=== PATIENT | female | born 1955 | race Caucasian/White ===

== ENCOUNTER 2016-11-15 13:00 | Day surgery (SDC) | payer MEDICARE ==
[2016-11-15] MEDS ORDERED: PROPOFOL 10 MG/ML VIAL IV ONE (14:00)
[2016-11-15] MEDS ORDERED: LIDOCAINE 2% MDV (20MG/ML) 20ML VIAL IV ONE (14:00)
[2016-11-15] MEDS ORDERED: MIDAZOLAM HCL 2MG/2ML VIAL IV ONE (14:00)
--- NOTE | 2016-11-20 10:40 | Operative Note ---
DATE OF SURGERY: REQUESTING PROVIDER: Dr. Yfn Beard. POSTOPERATIVE DIAGNOSIS: 1. Left-sided colon diverticulosis. 2. A 3 mm descending colon polyp that was removed by cold biopsy forceps. 3. 5 to 6 mm sessile polyps in the rectum that were removed by cold snare. OPERATION: COLONOSCOPY. Surgeon: Trell Dotson M.D. Indication for Procedure: This is a 61-year-old female with average risk for colorectal cancer who presented for screening colonoscopy. Sedation: Sedation was per Anesthesia. Pulse oximetry was monitored throughout the duration of the procedure to maintain O2 saturation of 90% or greater. Supplemental oxygen was administered via nasal cannula. Cardiac and vital signs were monitored throughout the duration of the procedure, and they were stable. Description of the procedure of colonoscopy and risks and benefits of the procedure including the risk of bleeding and perforation, among others, were explained to the patient who voiced understanding and agrees to have the procedure done. Physical exam was performed, and the patient was found stable for sedation. PROCEDURE: The patient was placed in the left lateral position and sedation was initiated. Digital rectal exam was performed and showed small external hemorrhoids with no palpable rectal masses. The Olympus PCF-180AL colonoscope was then inserted into the rectum under direct visualization and advanced to the cecum without difficulty. The ileocecal valve and appendiceal orifice were identified and photographed. The colonic mucosa was carefully examined upon insertion of the colonoscope. There were no lesions noted except that there were scattered diverticula noted in the sigmoid and descending colon. There were no other lesions noted. Upon withdrawal of the colonoscope, the colonic mucosa was carefully examined. The cecum, ascending colon and transverse colon appeared normal. In the descending colon was a 3 mm sessile polyp that was noted and was remove by cold biopsy forceps. The colonoscope was then withdrawn further into the rectum and 5 to 6 mm sessile polyps were noted and they were removed by cold snare. There were no other lesions noted. The colonoscope was then withdrawn and the procedures were terminated. The patient tolerated the procedures well without immediate complications. She remained with stable vital signs and was transferred to the Recovery Room. PLAN AND RECOMMENDATIONS: 1. She is to be on a high-fiber diet. 2. She is to have a repeat colonoscopy for surveillance in 3 or 5 or 10 years depending on histology of the polyps. As always, thank you for allowing me to participate in the care of your patient. Trell Dotson MD CC: Dr. Yfn PITTMAN
== END 2016-11-15 13:43 | disposition home or self-care (01) ==
LOC: HOP 13:00
PROVIDERS: ATTEND Internal Medicine Gastroenterology
DX: Z12.11 Encounter for screening for malignant neoplasm of colon (principal); D12.4 Benign neoplasm of descending colon; K62.1 Rectal polyp

== ENCOUNTER 2018-04-02 15:33 | Emergency (ER) | payer MEDICARE ==
[2018-04-02] MEDS ORDERED: METHYLPREDNISOLONE PF 125MG/VIAL IM ONE (16:01)
--- NOTE | 2018-04-02 17:01 | Emergency Department Record ---
History of Present Illness - General Chief complaint: ENT Stated complaint: THROAT SWELLING Time Seen by Provider: 04/02/18 15:57 Source: Patient Mode of Arrival: Ambulatory Limitations: No limitations - History of Present Illness Initial comments: pt had a sudden onset of pain and swelling on r side of throat and feels like her lymph nodes have swelling MD complaint: Sore throat Onset/Timin -: Hour(s) Location: Throat Severity: Moderate Severity scale (1-10): 7 Quality: Sharp Consistency: Intermittent Worsens with: Swallowing Associated Symptoms: Sore throat - Related Data Home Medications Medication Instructions Recorded Confirmed Last Taken Lisinopril 2.5 mg PO DAILY 04/02/18 04/02/18 04/02/18 Tramadol HCl [Ultram] 50 mg PO Q8H 04/02/18 04/02/18 04/02/18 Allergies Allergy/AdvReac Type Severity Reaction Status Date / Time No Known Drug Allergies Allergy Verified 04/02/18 15:43 Travel Screening - Travel/Exposure Within Last 30 Days Have you traveled within the last 30 days?: No - Travel/Exposure Within Last Year Have you traveled outside the [place] in the last year?: No - Additonal Travel Details Have you been exposed to anyone with a communicable illness?: No - Travel Symptoms Symptom Screening: None Review of Systems Reviewed: No additional complaints except as noted below Constitutional: Reports: As per HPI. Denies: Chills, Fever, Malaise, Night sweats, Weakness, Weight change Eyes: Reports: As per HPI. Denies: Eye discharge, Eye pain, Photophobia, Vision change ENT: Reports: As per HPI, Throat pain. Denies: Congestion, Dental pain, Ear pain, Epistaxis, Hearing loss Respiratory: Reports: As per HPI. Denies: Cough, Dyspnea, Hemoptysis, Stridor, Wheezes Cardiovascular: Reports: As per HPI. Denies: Arrhythmia, Chest pain, Dyspnea on exertion, Edema, Murmurs, Orthopnea, Palpitations, Paroxysmal nocturnal dyspnea, Rheumatic Fever, Syncope Endocrine: Reports: As per HPI. Denies: Fatigue, Heat or cold intolerance, Polydipsia, Polyuria Gastrointestinal: Reports: As per HPI. Denies: Abdominal pain, Constipation, Diarrhea, Hematemesis, Hematochezia, Melena, Nausea, Vomiting Genitourinary: Reports: As per HPI. Denies: Abnormal menses, Discharge, Dyspareunia, Dysuria, Frequency, Hematuria, Incontinence, Retention, Urgency Musculoskeletal: Reports: As per HPI. Denies: Arthralgia, Back pain, Gout, Joint swelling, Myalgia, Neck pain Skin: Reports: As per HPI. Denies: Bruising, Change in color, Change in hair/ nails, Lesions, Pruritus, Rash Neurological: Reports: As per HPI. Denies: Abnormal gait, Confusion, Headache, Numbness, Paresthesias, Seizure, Tingling, Tremors, Vertigo, Weakness Psychiatric: Reports: As per HPI. Denies: Anxiety, Auditory hallucinations, Depression, Homicidal thoughts, Suicidal thoughts, Visual hallucinations Hematological/Lymphatic: Reports: As per HPI. Denies: Anemia, Blood Clots, Easy bleeding, Easy bruising, Swollen glands Past Medical History - SOCIAL HISTORY Smoking Status: Former smoker Alcohol Use: None Drug Use: None - RESPIRATORY Hx Respiratory Disorders: No - CARDIOVASCULAR Hx Cardio Disorders: Yes - NEURO Hx Neuro Disorders: No - GI Hx GI Disorders: Yes Hx Reflux: Yes - Hx Genitourinary Disorders: No - ENDOCRINE Hx Endocrine Disorders: No - MUSCULOSKELETAL Hx Musculoskeletal Disorders: Yes Hx Arthritis: Yes - PSYCH Hx Psych Problems: Yes Hx Depression: Yes - HEMATOLOGY/ONCOLOGY Hx Hematology/Oncology Disorders: No Family Medical History Any Significant Family History?: Yes Family Hx Comment (NOT TO BE USED IN PLACE OF ITEMS BELOW): father of PE Hx Cancer: Mother Physical Exam - General General Appearance: Alert, Oriented x3, Cooperative, Mild distress - Head Head exam: Normal inspection - Eye Eye exam: Normal appearance, PERRL, EOMI Pupils: Normal accommodation - ENT ENT exam: Normal exam, Mucous membranes moist, Normal external ear exam, Normal orophraynx, TM's normal bilaterally Ear exam: Normal external inspection. negative: External canal tenderness Nasal Exam: Normal inspection. negative: Discharge, Sinus tenderness Mouth exam: Normal external inspection, Tongue normal Teeth exam: Normal inspection. negative: Dental caries Throat exam: Tonsillar erythema, Other (pinhole draining purulent drainage on right pharynx). negative: Tonsillar exudate - Neck Neck exam: Full ROM, Lymphadenopathy. negative: Tenderness - Respiratory Respiratory exam: Normal lung sounds bilaterally. negative: Respiratory distress - Cardiovascular Cardiovascular Exam: Regular rate, Normal rhythm, Normal heart sounds - GI/Abdominal GI/Abdominal exam: Soft, Normal bowel sounds. negative: Tenderness - Rectal Rectal exam: Deferred - exam: Deferred - Extremities Extremities exam: Normal inspection, Full ROM, Normal capillary refill. negative: Tenderness - Back Back exam: Reports: Normal inspection, Full ROM. Denies: Muscle spasm, Rash noted, Tenderness - Neurological Neurological exam: Alert, CN II-XII intact, Normal gait, Oriented X3 - Psychiatric Psychiatric exam: Normal affect, Normal mood - Skin Skin exam: Dry, Intact, Normal color, Warm Course Vital Signs 04/02/18 15:45 Temperature 99.1 F Pulse Rate 88 Respiratory 16 Rate Blood Pressure 128/86 Pulse Ox 98 Medical Decision Making - Lab Data Result diagrams: 04/02/18 17:05 04/02/18 17:05 Lab Results 04/02/18 Range/Units Unknown Group A Strep Screen Negative (NEGATIVE) Disposition Disposition: Transfer Clinical Impression: Neck infection Disposition: Acute Care Hospital Transfer Transfer To: [facility] Reason For Transfer: needs ENT Accepting Physician: soriano Time Discussed w/Accepting Physician: 19:29 Forms: Patient Portal Access Quality - Quality Measures Quality Measures: N/A - Blood Pressure Screening Does Patient Have Any of the Following: No Blood Pressure Classification: Pre-Hypertensive BP Reading Systolic Measurement: 128 Diastolic Measurement: 86 Screening for High Blood Pressure: < Pre-Hypertensive BP, F/U Documented > [ [id number]] Pre-Hypertensive Follow-up Interventions: Follow-up with rescreen every year.
[2018-04-02 17:14] LABS: BASO % 0.8 % (0-6); EOS % 3.3 % (0-6); GRAN % 56.5 % (47-80); HEMOGLOBIN 14.1 gm/dl (11.6-16.0); LYMPH % 26.3 % (16-45); MEAN CELL VOLUME 85.2 fl (81-97); MEAN CORPUSCULAR HEMOGLOBIN 29.3 pg (27-33); MEAN CORPUSCULAR HGB CONC 34.4 g/dl (32-36); MEAN PLATELET VOLUME 8.1 fl (7.4-10.4); MONO % 13.1 % (0-9); PLATELET COUNT 298 K/uL (130-400); RED BLOOD COUNT 4.81 M/uL (3.80-5.40); RED CELL DISTRIBUTION WIDTH 12.7 % (11.5-14.5); WHITE BLOOD COUNT W/O DIFF 4.8 K/uL (4.2-12.2)
[2018-04-02 18:02] LABS: BLOOD UREA NITROGEN 6 mg/dL (8-23); CREATININE 0.6 mg/dL (0.5-0.9); EST GLOMERULAR FILTRATION RATE > 60 mL/min
[2018-04-02 18:05] LABS: GLUCOSE,RANDOM 96 mg/dL (74-109)
[2018-04-02] MEDS ORDERED: CEFTRIAXONE SODIUM 1 GM in 0.9 % SODIUM CHLORIDE 100ML 100 ML IVPB ONE (19:01)
--- NOTE | 2018-04-04 09:46 | CT SCAN REPORT ---
DATE: 04/02/2018 at 6:16 p.m. EXAM: NECK CT WITH CONTRAST. HISTORY: Pain and swelling in throat with difficulty swallowing. Prior tonsil surgery. TECHNIQUE: Axial CT scan of the neck performed following the intravenous administration of 80 mL of Omnipaque 300 as the intravenous contrast. COMPARISON: No prior CT with which to compare. FINDINGS: The parotid glands appear negative, and there is no thyroid nodule seen. Both submandibular glands, however, appear relatively hyper-enhancing, and on the right there is some surrounding hazy soft tissue density in place of the normal adipose tissue density likely representing some inflammatory change in the region of the right submandibular gland. In addition, there is some fullness in the region of the oropharynx on the right extending down through the hypopharynx and effacing the vallecula as well as piriform sinus on the right, whereas the structures on the left are well aerated. The possibility of diffuse inflammatory change along the right side of the oropharynx and hypopharynx is raised. This could include a component of abscess. The region of the cords themselves appears negative. No superior mediastinal adenopathy seen. No definite discrete cervical adenopathy identified. The visualized paranasal sinuses and mastoids are clear. The visualized lungs are also clear. Multilevel degenerative change in the cervical spine, particularly at the odontoid-anterior arch of C1 articulation and at the C5-6 and C6-7 levels. There is a component of central spinal stenosis at the C5-6 and C6-7 levels. The apparent inflammatory change along the right side of the neck in the region of the hypopharynx probably involves the right side of the epiglottis as well. The left side of the epiglottis appears of normal size. IMPRESSION: 1. FINDINGS LIKELY REPRESENT INFLAMMATORY CHANGE ALONG THE RIGHT SIDE OF THE NECK FROM THE REGION OF THE SUBMANDIBULAR GLAND INFERIORLY THROUGH THE OROPHARYNX AND HYPOPHARYNX FOUND TO JUST ABOVE THE TRUE CORDS. THERE IS RELATIVE EFFACEMENT OF THE RIGHT SIDE OF THE VALLECULA AND PIRIFORM SINUS AND PROBABLY ALSO ENLARGEMENT OF THE RIGHT SIDE OF THE EPIGLOTTIS. SOME HYPERENHANCEMENT OF THE SUBMANDIBULAR GLANDS, PARTICULARLY ON THE RIGHT. 2. MULTILEVEL DEGENERATIVE CHANGE IN THE CERVICAL SPINE DETAILED ABOVE. JOB NUMBER: [id number] MTDD
== END 2018-04-02 21:07 | disposition short-term general hospital (02) ==
LOC: ER 15:33
DX: L04.0 Acute lymphadenitis of face, head and neck (principal); R13.10 Dysphagia, unspecified; J02.9 Acute pharyngitis, unspecified; Z87.891 Personal history of nicotine dependence
CPT/HCPCS: 99285 ×2; 96372; 96365; 85025; 80048; 87880; 70491; Q9967; J2930